=== PATIENT | female | born 1955 | race Caucasian/White ===

== ENCOUNTER 2016-10-07 12:05 | Emergency (ER) | payer BC, OTHER ==
[2016-10-07 12:33] LABS: Hematocrit 42 % (35-47); Hemoglobin 13.8 g/dl (12.0-16.0); Mean Corpuscular HGB Conc 33 g/dl (31-36); Mean Corpuscular Hemoglobin 32 pg (27-31); Mean Corpuscular Volume 97 fL (80-97); Mean Platelet Volume 10 um3 (7.4-10.4); Red Blood Count 4.31 10^6/ul (4.0-5.4); Red Cell Distribution Width 13 % (10.5-15); White Blood Count 6.3 10^3/ul (3.5-10.8)
[2016-10-07 12:48] LABS: Albumin 3.8 g/dL (3.2-5.2); BUN/Creatinine Ratio 25.7 (8-20); EGFR African American 103.7 (>60); EGFR Non-African American 80.6 (>60); Globulin 3.2 g/dL (2-4); Potassium 3.6 mmol/L (3.5-5.0); Total Bilirubin 0.4 mg/dL (0.2-1.0)
[2016-10-07 13:18] LABS: TSH (Thyroid Stimulating Horm) 4.61 mcIU/mL (0.34-5.60)
--- NOTE | 2016-10-07 13:59 | RAD ---
INDICATION: Altered mental status COMPARISON: None. TECHNIQUE: Contiguous axial sections of the brain were obtained from the skull base to the vertex without contrast. FINDINGS: The ventricles, cisterns and sulci are within normal limits. The henriquez-white matter differentiation is adequately maintained and there is no sulcal effacement. No significant focal abnormality or mass effect is present. There is no evidence for intracranial hemorrhage. No significant focal osseous abnormality is present. The visualized portion of the paranasal sinuses and mastoid air cells appear clear. IMPRESSION: Normal CT of the brain.
[2016-10-07 14:20] LABS: Urine Bacteria Absent (Absent); Urine Bilirubin Negative (Negative); Urine Glucose Negative (Negative); Urine Nitrite Negative (Negative)
[2016-10-07] MEDS ORDERED: Ketorolac INJ* 30 MG/ML 1 ML VIAL IV ONE (14:29)
[2016-10-07] MEDS ORDERED: NS 0.9% 1000 ML* 1,000 ML IV ONE (14:29)
[2016-10-07] MEDS ORDERED: Metoclopramide IV* 5 MG/ML 2 ML VIAL IV ONE (14:29)
[2016-10-07] MEDS ORDERED: diPHENhydraMINE IV* 50 MG/ML 1 ml VIAL (BENADRYL) IV ONE (14:29)
[2016-10-07 15:29] VITALS: BP 120/82
--- NOTE | 2016-10-07 15:41 | ED ---
marilee Ribeiro Timothy, scribed for Emerson Torres MD on 10/07/16 at 1230 . Neurological HPI - HPI Summary HPI Summary: Sindi Man is a 60 yo female presenting to [facility] with a period of 5 minute memory loss at 1130. Her is in the room, and states that she does not remember the episode, but her memory has completely returned. He states that he asked her many questions, like what day it was, and she had no idea what the answers were. Pt states she remembers being asked the questions by her . She states she had a ROME prior to the episode. She has some slight nausea currently. She denies any MHx. - History of Current Complaint Chief Complaint: EDNeurologicalDeficit Stated Complaint: LOSS OF MEMORY Time Seen by Provider: 10/07/16 12:15 Hx Obtained From: Patient Onset/Duration: Sudden Onset, Started minutes ago, Resolved Timing: Intermittent Episodes Lasting: - 5mins Onset Severity: Mild Current Severity: Mild Pain Intensity: 0 Pain Scale Used: 0-10 Numeric Character: Other: - memory loss Episode Lasting: Seconds/Minutes - 5 mins Syncope Context: Witnessed Aggravating: Nothing Alleviating: Spontanious Resolution Associated Signs and Symptoms: Positive: Headache, Nausea/Vomiting - Allergy/Home Medications Allergies/Adverse Reactions: Allergies Allergy/AdvReac Type Severity Reaction Status Date / Time No Known Allergies Allergy Verified 10/07/16 12:16 PMH/Surg Hx/FS Hx/Imm Hx - Cancer History Hx Chemotherapy: No Hx Radiation Therapy: No Infectious Disease History: No Infectious Disease History: Denies: Traveled Outside the [place] in Last 30 Days - Family History Known Family History: Positive: Cardiac Disease, Hypertension - unsure, Diabetes - Social History Alcohol Use: Daily Alcohol Amount: 1-2 drinks daily Substance Use Type: Reports: None Hx Tobacco Use: No Smoking Status (MU): Never Smoked Tobacco Review of Systems Constitutional: Negative Eyes: Negative ENT: Negative Cardiovascular: Negative Respiratory: Negative Positive: Nausea Genitourinary: Negative Musculoskeletal: Negative Skin: Negative Neurological: Other - memory loss Positive: Headache Psychological: Normal All Other Systems Reviewed And Are Negative: Yes Physical Exam Triage Information Reviewed: Yes Vital Signs On Initial Exam: Initial Vitals Temp Pulse Resp BP Pulse Ox 98.3 F 94 18 175/100 98 10/07/16 12:11 10/07/16 12:11 10/07/16 12:11 10/07/16 12:11 10/07/16 12:11 Vital Signs Reviewed: Yes Appearance: Positive: Well-Appearing, No Pain Distress, Well-Nourished Skin: Positive: Warm, Skin Color Reflects Adequate Perfusion, Dry Head/Face: Positive: Normal Head/Face Inspection Eyes: Positive: Normal ENT: Positive: Normal ENT inspection Neck: Positive: Supple, Nontender Respiratory/Lung Sounds: Positive: Clear to Auscultation, Breath Sounds Present Cardiovascular: Positive: RRR Abdomen Description: Positive: Nontender, Soft Bowel Sounds: Positive: Present Musculoskeletal: Positive: Normal Neurological: Positive: Normal Psychiatric: Positive: Normal - Betty Coma Scale Coma Scale Total: 15 Diagnostics - Vital Signs Vital Signs Temp Pulse Resp BP Pulse Ox 10/07/16 12:20 83 20 159/90 97 10/07/16 12:16 85 15 98 10/07/16 12:11 98.3 F 94 18 175/100 98 - Laboratory Lab Results: Lab Results 10/07/16 10/07/16 10/07/16 Range/Units 12:26 12:26 12:26 WBC 6.3 (3.5-10.8) 10^3/ul RBC 4.31 (4.0-5.4) 10^6/ul Hgb 13.8 (12.0-16.0) g/dl Hct 42 (35-47) % MCV 97 (80-97) fL MCH 32 H (27-31) pg MCHC 33 (31-36) g/dl RDW 13 (10.5-15) % Plt Count 161 (150-450) 10^3/ul MPV 10 (7.4-10.4) um3 Neut % (Auto) 54.4 (38-83) % Lymph % (Auto) 34.9 (25-47) % [place] % (Auto) 9.2 H (1-9) % Eos % (Auto) 1.0 (0-6) % Baso % (Auto) 0.5 (0-2) % Absolute Neuts (auto) 3.4 (1.5-7.7) 10^3/ul Absolute Lymphs (auto) 2.2 (1.0-4.8) 10^3/ul Absolute Monos (auto) 0.6 (0-0.8) 10^3/ul Absolute Eos (auto) 0.1 (0-0.6) 10^3/ul Absolute Basos (auto) 0 (0-0.2) 10^3/ul Absolute Nucleated RBC 0 10^3/ul Nucleated RBC % 0.1 INR (Anticoag Therapy) 0.84 L (0.89-1.11) Sodium 136 (133-145) mmol/L Potassium 3.6 (3.5-5.0) mmol/L Chloride 104 (101-111) mmol/L Carbon Dioxide 25 (22-32) mmol/L Anion Gap 7 (2-11) mmol/L BUN 19 (6-24) mg/dL Creatinine 0.74 (0.51-0.95) mg/dL Est GFR ( Amer) 103.7 (>60) Est GFR (Non-Af Amer) 80.6 (>60) BUN/Creatinine Ratio 25.7 H (8-20) Glucose 105 H (70-100) mg/dL Lactic Acid (0.5-2.0) mmol/L Calcium 9.0 (8.6-10.3) mg/dL Total Bilirubin 0.40 (0.2-1.0) mg/dL AST 19 (13-39) U/L ALT 26 (7-52) U/L Alkaline Phosphatase 55 (34-104) U/L Troponin I 0.00 (<0.04) ng/mL Total Protein 7.0 (6.4-8.9) g/dL Albumin 3.8 (3.2-5.2) g/dL Globulin 3.2 (2-4) g/dL Albumin/Globulin Ratio 1.2 (1-3) TSH 4.61 (0.34-5.60) mcIU/mL Urine Color Urine Appearance Urine pH (5-9) Ur Specific [place] (1.010-1.030) Urine Protein (Negative) Urine Ketones (Negative) Urine Blood (Negative) Urine Nitrate (Negative) Urine Bilirubin (Negative) Urine Urobilinogen (Negative) Ur Leukocyte Esterase (Negative) Urine WBC (Auto) (Absent) Urine RBC (Auto) (Absent) Urine Bacteria (Absent) Urine Glucose (Negative) 10/07/16 10/07/16 Range/Units 12:26 14:03 WBC (3.5-10.8) 10^3/ul RBC (4.0-5.4) 10^6/ul Hgb (12.0-16.0) g/dl Hct (35-47) % MCV (80-97) fL MCH (27-31) pg MCHC (31-36) g/dl RDW (10.5-15) % Plt Count (150-450) 10^3/ul MPV (7.4-10.4) um3 Neut % (Auto) (38-83) % Lymph % (Auto) (25-47) % [place] % (Auto) (1-9) % Eos % (Auto) (0-6) % Baso % (Auto) (0-2) % Absolute Neuts (auto) (1.5-7.7) 10^3/ul Absolute Lymphs (auto) (1.0-4.8) 10^3/ul Absolute Monos (auto) (0-0.8) 10^3/ul Absolute Eos (auto) (0-0.6) 10^3/ul Absolute Basos (auto) (0-0.2) 10^3/ul Absolute Nucleated RBC 10^3/ul Nucleated RBC % INR (Anticoag Therapy) (0.89-1.11) Sodium (133-145) mmol/L Potassium (3.5-5.0) mmol/L Chloride (101-111) mmol/L Carbon Dioxide (22-32) mmol/L Anion Gap (2-11) mmol/L BUN (6-24) mg/dL Creatinine (0.51-0.95) mg/dL Est GFR ( Amer) (>60) Est GFR (Non-Af Amer) (>60) BUN/Creatinine Ratio (8-20) Glucose (70-100) mg/dL Lactic Acid 1.3 (0.5-2.0) mmol/L Calcium (8.6-10.3) mg/dL Total Bilirubin (0.2-1.0) mg/dL AST (13-39) U/L ALT (7-52) U/L Alkaline Phosphatase (34-104) U/L Troponin I (<0.04) ng/mL Total Protein (6.4-8.9) g/dL Albumin (3.2-5.2) g/dL Globulin (2-4) g/dL Albumin/Globulin Ratio (1-3) TSH (0.34-5.60) mcIU/mL Urine Color Straw Urine Appearance Clear Urine pH 6.0 (5-9) Ur Specific [place] 1.004 L (1.010-1.030) Urine Protein Negative (Negative) Urine Ketones Negative (Negative) Urine Blood 1+ H (Negative) Urine Nitrate Negative (Negative) Urine Bilirubin Negative (Negative) Urine Urobilinogen Negative (Negative) Ur Leukocyte Esterase Negative (Negative) Urine WBC (Auto) Absent (Absent) Urine RBC (Auto) Trace(0-2/hpf) (Absent) Urine Bacteria Absent (Absent) Urine Glucose Negative (Negative) Result Diagrams: 10/07/16 12:26 10/07/16 12:26 Lab Statement: Any lab studies that have been ordered have been reviewed, and results considered in the medical decision making process. - CT Brain CT Interpretation: No Acute Changes - IMPRESSION: Normal CT of the brain. CT Interpretation Completed By: Radiologist - EKG 1307 Cardiac Rate: NL - @78 BPM EKG Rhythm: Sinus Rhythm EKG Interpretation: NSR @ 78 BPM. Normal EKG. Course/Dx - Course Assessment/Plan: Sindi Man is a 60 yo feamle presenting to [facility] after a 5 minute period of memory loss which spontaneously resolved. Her states he asked her basic questions to which she seemed unable to remember the answers too. She states she has vague recollections of this episode. After review of her lab work and imaging studies, as well as consult with Dr. Abernathy, she will be discharged home with TGA and instructions to follow up with her PCP and Dr. Abernathy. - Diagnoses Provider Diagnoses: Transient global amnesia - Physician Notifications Discussed Care of Patient With: 1256 - Dr. Abernathy (neurology) - discussed Pt condiiton, agrees to evaluate Pt. 1404 - Dr. Abernathy (neurology) - discussed results of brain CT, will re-evaluate Pt. 1445 - Dr. Abernathy (neurology) - after re-evaluation, believes cause of symptoms is TGA. Discharge - Discharge Plan Condition: Stable Disposition: HOME Patient Education Materials: Transient Global Amnesia (ED) Referrals: Sloane Rivera MD [Primary Care Provider] - 2 Days Annie Abernathy MD [Medical Doctor] - 2 Days Additional Instructions: Please follow up with Dr. Abernathy and your primary care physician within 2 days regarding your visit to he emergency department. Return to the emergency department with any new or recurring symptoms. The documentation as recorded by the marilee goel Timothy accurately reflects the service I personally performed and the decisions made by me, Emerson Torres MD.
--- NOTE | 2016-10-07 20:33 | CONS ---
NEUROLOGY CONSULTATION: DATE OF CONSULT: 10/07/16 LOCATION: The patient is in the emergency department. REFERRING PROVIDER: Bassam Torres MD PRIMARY CARE PHYSICIAN: Dr. Rivera. REASON FOR CONSULT: Amnesia. HISTORY OF PRESENT ILLNESS: Sindi Man is a 60-year-old woman with a history of goiter who presented to the emergency department this morning with the sudden onset of amnesia. Her reports that they were discussing an employee when she suddenly could not remember what they were discussing and could not remember the employee either. Her showed her a picture and she did not recognize the person. She also did not recognize that the month was September and that it was snowing out. He became concerned and urged her to come to the emergency department, which she reluctantly did. Even upon arrival to the emergency department, while it appeared that most of her symptoms had resolved, she later admitted that she could not remember which car they had driven in. She did not have repetitive questioning, but her thinks he may not have given her the chance to do this because he kept asking her questions. She notes that prior to the onset of these symptoms, she and her had just had sexual intercourse. She denies any focal weakness or numbness, dysarthria, aphasia, vertigo, or imbalance associated with this episode. She has no past history of seizures. Over the past several weeks she has been getting some headaches which are unusual for her. She has been treating them with ibuprofen. She has also been getting what she calls migraine auras, which consist of lights in her vision, which will sometimes obscure one side of her vision and typically last for 15 minutes. 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 These visual phenomenon are not typically followed by a headache. She denies any past history of significant headaches prior to the last several weeks. She currently has a mild headache in the emergency department. PAST MEDICAL HISTORY: Goiter which is followed by Dr. Ott. MEDICATIONS: None. ALLERGIES: None. FAMILY HISTORY: Her mother has had heart disease. Father had skin cancer. Sister of pancreatic cancer. SOCIAL HISTORY: She lives with her . She drinks 2 to 3 alcoholic beverages per night. She does not use tobacco. REVIEW OF SYSTEMS: As per HPI, otherwise negative. PHYSICAL EXAM: Vital Signs: Temperature 98.3, blood pressure 175/100 upon arrival and then 159/90 when checked sometime later. Heart rate 84, oxygen saturation 98% on room air. On general exam, she appears her stated age and is in no acute distress. Heart reveals a regular rate and rhythm with no murmurs, rubs, or gallops. Lungs are clear to auscultation bilaterally. There are no carotid bruits. There is no extremity edema. On neurologic examination, she is fully awake, alert, and oriented. Speech is fluent without dysarthria or aphasia. Pupils are equal, round and reactive from 4 to 2 mm bilaterally. Versions and lezama were full. Facial sensation and musculature is full and symmetric. Hearing is intact to finger rub. The palate elevates symmetrically and the tongue is midline. On motor examination, there is normal bulk and tone in the upper and lower extremities. Strength is full with no pronator drift. Sensation is intact to light touch, temperature and vibration in the upper and lower extremities. Reflexes are 2+ throughout with downgoing toes bilaterally. [id number] and [id number] were without ataxia. Romberg was negative and she was able to heel and toe walk. DIAGNOSTIC STUDIES/LAB DATA: CBC was largely unremarkable as was her CMP and coagulation studies. Urinalysis notable only for 1+ blood. Noncontrast brain CT was personally reviewed and was a normal study. IMPRESSION: Sindi Man is a 60-year-old woman who presents with a transient episode of amnesia, which lasted less than an hour and was not associated with any other focal neurologic signs or symptoms. This event may have been triggered by having sexual intercourse. Though she did not exhibit repetitive questioning as is classic for transient global amnesia, I think this is still the most likely diagnosis in this case. I discussed this condition with them including the fact that it typically happens once and never recurs and the different activities, which can trigger an event. I recommended MRI of the brain as well as EEG and gave her the option to either be admitted to the hospital and have these done tomorrow or pursue the studies as an outpatient within the coming week. She opted to be discharged from the emergency department and I will have these studies set up for her as an outpatient. With respect to her headaches, we discussed that it is somewhat unusual for a woman of her age to develop new onset headaches without a significant history of migraine and so the MRI will be helpful in that regard as well. My office will follow up with her in setting up these tests and in giving her the results of these tests as well. Thank you for this consultation. CC: Dr. Rivera* [id number]/[facility] #: [id number] EDDA
== END 2016-10-07 15:28 | disposition home or self-care (01) ==
LOC: ED 12:05
DX: G45.4 Transient global amnesia (principal); R51 Headache; R11.2 Nausea with vomiting, unspecified
CPT/HCPCS: 36415; 70450; 80053; 81003; 81015; 83605; 84443; 84484; 85025; 85610; 93005; 96374; 96375; 99283; J1200; J1885; J2765

== ENCOUNTER 2017-01-10 13:20 | Emergency (ER) | payer BC ==
--- NOTE | 2017-01-10 15:38 | RAD ---
Indication: Chest pain. 2 views of the chest demonstrate no mediastinal shift. Heart is of normal size and configuration. Lungs are clear. IMPRESSION: No active cardiopulmonary disease is noted.
[2017-01-10 15:45] LABS: Hematocrit 40 % (35-47); Hemoglobin 13.3 g/dl (12.0-16.0); Mean Corpuscular HGB Conc 34 g/dl (31-36); Mean Corpuscular Hemoglobin 32 pg (27-31); Mean Corpuscular Volume 96 fL (80-97); Mean Platelet Volume 9 um3 (7.4-10.4); Red Blood Count 4.14 10^6/ul (4.0-5.4); Red Cell Distribution Width 14 % (10.5-15); White Blood Count 4.9 10^3/ul (3.5-10.8)
[2017-01-10 16:06] LABS: C Reactive Protein 2.77 mg/L (< 5.00)
[2017-01-10 17:08] VITALS: BP 134/59
--- NOTE | 2017-01-10 21:53 | ED ---
Jessica Ribeiro Alok, scribed for Emerson Torres MD on 01/10/17 at 1516 . HPI Chest Pain - HPI Summary HPI Summary: 61F presents to the ED for CP for the past few days. Pt states that her CP is located at the mid-sternum in the form of sharp spasms lasting 20 seconds at a time radiating to her back and shoulder blades. Pt is unsure of how often these pains occur but approximates at least 8 occurrences just today. Her CP is worsened by twisting motion, deep breaths, and coughing. Pt states she currently only feels a mild chest discomfort. Pt has been taking a "non-aspirin " pain reliever. Pt denies injury. Pt denies tenderness to palpation in the chest or back. Pt denies pain when sitting up. Pt denies abd pain. Pt denies any regular medications or PMHx. - History of Current Complaint Chief Complaint: EDChestWallPain Time Seen by Provider: 01/10/17 15:02 Hx Obtained From: Patient Onset/Duration: Started Days Ago, Atraumatic, Still Present Timing: Intermittent, Lasting Seconds Initial Severity: Moderate Current Severity: Moderate Pain Intensity: 1 Pain Scale Used: 0-10 Numeric Chest Pain Location: Discrete at:, Mid Sternal Chest Pain Radiates: Yes Chest Pain Radiates To:: Back, Shoulder Character: Sharp/Stabbing Aggravating Factor(s): Movement - twisting, Deep Breaths, Other: - coughing Alleviating Factor(s): OTC Meds - "non-aspirin" pain reliever Associated Signs and Symptoms: Positive: Chest Pain, Back Pain, Other: - dyspnea - Allergy/Home Medications Allergies/Adverse Reactions: Allergies Allergy/AdvReac Type Severity Reaction Status Date / Time No Known Allergies Allergy Verified 10/16/16 12:17 PMH/Surg Hx/FS Hx/Imm Hx Endocrine/Hematology History: Denies: Hx Diabetes Cardiovascular History: Denies: Hx Hypertension, Hx Pacemaker/ICD History: Denies: Hx Renal Disease Sensory History: Denies: Hx Hearing Aid Psychiatric History: Denies: Hx Panic Disorder - Cancer History Hx Chemotherapy: No Hx Radiation Therapy: No - Surgical History Surgery Procedure, Year, and Place: C SECTION 1979/1982. REMOVAL OF MOLE ON FACE 2006 Infectious Disease History: Denies: Traveled Outside the [place] in Last 30 Days - Family History Known Family History: Positive: Cardiac Disease, Hypertension - unsure, Diabetes - Social History Occupation: Employed Full-time Alcohol Use: Daily Alcohol Amount: 1-2 drinks daily Substance Use Type: Reports: None Hx Tobacco Use: No Smoking Status (MU): Never Smoked Tobacco Review of Systems Negative: Fever Positive: Chest Pain Positive: Other - dyspnea Negative: Abdominal Pain Positive: Other - back pain All Other Systems Reviewed And Are Negative: Yes Physical Exam Triage Information Reviewed: Yes Vital Signs On Initial Exam: Initial Vitals Temp Pulse Resp BP Pulse Ox 98.6 F 89 18 145/97 96 01/10/17 13:28 01/10/17 13:28 01/10/17 13:28 01/10/17 13:28 01/10/17 13:28 Vital Signs Reviewed: Yes Appearance: Positive: Well-Appearing, No Pain Distress Skin: Positive: Warm, Skin Color Reflects Adequate Perfusion, Dry Head/Face: Positive: Normal Head/Face Inspection Eyes: Positive: Normal ENT: Positive: Normal ENT inspection Neck: Positive: Supple, Nontender Respiratory/Lung Sounds: Positive: Clear to Auscultation, Breath Sounds Present Cardiovascular: Positive: RRR Abdomen Description: Positive: Nontender, Soft Bowel Sounds: Positive: Present Musculoskeletal: Positive: Normal Neurological: Positive: Normal Psychiatric: Positive: Normal, Affect/Mood Appropriate Diagnostics - Vital Signs Vital Signs Temp Pulse Resp BP Pulse Ox 01/10/17 14:20 99 F 76 18 126/80 96 01/10/17 13:28 98.6 F 89 18 145/97 96 - Laboratory Lab Results: Lab Results 01/10/17 01/10/17 Range/Units 15:37 15:37 WBC 4.9 (3.5-10.8) 10^3/ul RBC 4.14 (4.0-5.4) 10^6/ul Hgb 13.3 (12.0-16.0) g/dl Hct 40 (35-47) % MCV 96 (80-97) fL MCH 32 H (27-31) pg MCHC 34 (31-36) g/dl RDW 14 (10.5-15) % Plt Count 151 (150-450) 10^3/ul MPV 9 (7.4-10.4) um3 Neut % (Auto) 61.8 (38-83) % Lymph % (Auto) 27.6 (25-47) % [place] % (Auto) 7.6 (1-9) % Eos % (Auto) 1.5 (0-6) % Baso % (Auto) 1.5 (0-2) % Absolute Neuts (auto) 3.0 (1.5-7.7) 10^3/ul Absolute Lymphs (auto) 1.3 (1.0-4.8) 10^3/ul Absolute Monos (auto) 0.4 (0-0.8) 10^3/ul Absolute Eos (auto) 0.1 (0-0.6) 10^3/ul Absolute Basos (auto) 0.1 (0-0.2) 10^3/ul Absolute Nucleated RBC 0.01 10^3/ul Nucleated RBC % 0.1 Troponin I 0.00 (<0.04) ng/mL C-Reactive Protein 2.77 (< 5.00) mg/L Result Diagrams: 01/10/17 15:37 Lab Statement: Any lab studies that have been ordered have been reviewed, and results considered in the medical decision making process. - Radiology CXR Xray Interpretation: Positive (See Comments) - IMPRESSION: No active cardiopulmonary disease is noted. Radiology Interpretation Completed By: Radiologist Chest Pain Course/Dx - Course Course Of Treatment: Ms. Olivera presented with an atypical chest pain which sounded radicular or musculoskeletal to me. Her W/U was negative and I recommended a trial of ibuprofen and F/U. - Diagnoses Provider Diagnoses: Chest wall pain Discharge - Discharge Plan Condition: Stable Disposition: HOME Patient Education Materials: Chest Wall Pain (ED) Referrals: Sloane Rivera MD [Primary Care Provider] - Additional Instructions: Please follow up with your primary care provider and take ibuprofen as needed The documentation as recorded by the Jessica goel Alok accurately reflects the service I personally performed and the decisions made by me, Emerson Torres MD.
== END 2017-01-10 17:48 | disposition home or self-care (01) ==
LOC: ED 13:20
DX: R07.89 Other chest pain (principal); M54.9 Dorsalgia, unspecified; R06.00 Dyspnea, unspecified; R05 Cough
CPT/HCPCS: 36415; 71020; 84484; 85025; 86140; 93005; 99282